=== PATIENT | male | born 1995 | race Caucasian/White ===

== ENCOUNTER → 2016-11-25 | Outpatient (CLI) | payer BC ==
[~2016-11-25] MED LIST: BACITRACIN OPH3.5 GM TOP; BREO ELLIPTA 11 EACH INH; CEPACOL SORE T1 EAC1 PO; DELTASONE20 MG PO; DUONEB INH; NORCO 5-325 TA1 EACH PO; PROAIR HFA8.5 GM INH; PULMICORT1 MG/2 ML INH; ULTRAM50 MG PO
== END | disposition disaster alternative care site (69) ==
LOC: GRAD 11:40
DX: Z48.89 Encounter for other specified surgical aftercare (principal); Z98.890 Other specified postprocedural states

== ENCOUNTER → 2016-12-16 | Outpatient (CLI) | payer BC | END | disposition disaster alternative care site (69) | LOC: GRAD 08:40 | DX: Z47.89 Encounter for other orthopedic aftercare (principal); Z98.1 Arthrodesis status ==

== ENCOUNTER → 2017-01-09 | Outpatient (CLI) | payer BC | END | disposition disaster alternative care site (69) | LOC: GRAD 13:24 | DX: M25.552 Pain in left hip (principal); S72.092D Other fracture of head and neck of left femur, subsequent encounter for closed fracture with routine healing; S76.012D Strain of muscle, fascia and tendon of left hip, subsequent encounter; Z98.1 Arthrodesis status; X58.XXXD Exposure to other specified factors, subsequent encounter ==